=== PATIENT | female | born 1930 | race Caucasian/White ===

== ENCOUNTER 2017-05-11 10:36 | Inpatient (IN) | payer MEDICARE ==
[~2017-05-11] VITALS: Ht 160 cm; Wt 64.0 kg
[~2017-05-11 10:36] MED LIST: ENAL-3 OR; LANS15CA21 OR; METO25TA3 OR; SUM25T OR
[2017-05-11] MEDS ORDERED: SODIUM CHLORIDE 0.9% 1,000 ML IVB ONE (11:17)
[2017-05-11 12:51] LABS: Basophils # (auto) 0 uL; Basophils % (auto) 0.3 % (0.0-2.0); Eosinophils # (auto) 0.2 uL; Hematocrit 33.9 % (36.0-46.0); Hemoglobin 11.3 g/dL (12.2-16.2); Lymphocytes # (auto) 2.3 uL; Lymphocytes % (auto) 28.7 % (10.0-50.0); Mean Corpuscular Hemoglobin 28.2 pg (28.0-32.0); Mean Corpuscular Hgb Conc. 33.4 g/dL (32.0-36.0); Mean Corpuscular Volume 84.6 fL (80.0-100.0); Mean Platelet Volume 8.1 fL (6.9-10.8); Monocytes # (auto) 0.6 uL; Monocytes % (auto) 7.6 % (0.0-12.0); Neutrophils # (auto) 4.9 uL; Neutrophils % (auto) 60.4 % (37.0-80.0); Nucleated Red Blood Cells % 0.1 %; Platelet Count (auto) 281 10^3/uL (140-450); Red Cell Distribution Width 14.3 % (11.8-14.3); White Blood Cell 8.2 10^3/uL (4.4-10.8)
[2017-05-11 13:01] LABS: Urine Bilirubin Negative (Negative); Urine Blood 1+ /uL (Negative); Urine Glucose Normal (Normal); Urine Ketone Negative (Negative); Urine Nitrite Negative (Negative); Urine RBC 23 /hpf (0 - 4); Urine Squamous Epithelial Cell FEW /hpf (<5); Urine Urobilinogen Normal (Negative)
[2017-05-11 13:02] LABS: Urine Color Straw (Yellow)
[2017-05-11 13:04] LABS: INR 0.99 (0.9-1.15); Partial Thromboplastin Time 26.3 sec (22.64-33.71); Prothrombin Time 10.8 sec (9.37-12.3)
[2017-05-11] MEDS ORDERED: risperiDONE 1 MG TAB PO ONE (13:30)
[2017-05-11 13:31] LABS: Alkaline Phosphatase 53 U/L (45-117); Anion Gap 8 (5-15); Aspartate Aminotransferase 21 U/L (15-37); BUN/Creatinine Ratio 21.7; Bilirubin, Total 0.3 mg/dL (0.2-1.0); Blood Urea Nitrogen 26 mg/dL (7-18); Calcium 8.2 mg/dL (8.5-10.1); Carbon Dioxide 25 mmol/L (21-32); Chloride 107 mmol/L (98-107); GFR African American 55 mL/min; GFR Non-African American 45 mL/min; Glucose 95 mg/dL (74-106); Magnesium 2.1 mg/dL (1.6-2.6); Potassium 3.8 mmol/L (3.5-5.1); Sodium 140 mmol/L (136-145); Total Protein 7.1 g/dL (6.4-8.2)
[2017-05-11] MEDS ORDERED: DIAZEPAM 5 MG/ML 2ML SYRG IV ONE (14:00)
[2017-05-11] MEDS ORDERED: diphenhdrAMINE HCL 50 MG/1 ML VL IV ONE ×2 (14:15→23:15)
[2017-05-11] MEDS ORDERED: HALOPERIDOL LACTATE 5 MG/ML INJ VIAL IM ONE ×2 (14:15→23:15)
[2017-05-11] MEDS ORDERED: cefTRIAXone 1GM/10ml IVPUSH 10 ML IV ONE (14:30)
[2017-05-11] MEDS ORDERED: ACETAMINOPHEN 500 MG TAB PO PRN (14:45)
[2017-05-11] MEDS ORDERED: LACTULOSE 20Gm/30ML SOLN PO PRN (14:45)
[2017-05-11] MEDS ORDERED: MORPHINE SULF INJ 2 MG/ML SYRINGE 1ML IV PRN ×2 (14:45)
[2017-05-11] MEDS ORDERED: NITROGLYCERIN 0.4 MG SL TAB SL PRN (14:45)
[2017-05-11] MEDS ORDERED: QUEtiapine FUMARATE 25 MG TAB PO ONE (15:15)
[2017-05-11 15:26] LABS: Temperature: 23.1 C (20.0-25.0)
[2017-05-11] MEDS: SODIUM CHLORIDE 0.9% 1,000 ML IV SCH (15:28)
[2017-05-11] MEDS ORDERED: ASPirin 81 mg TAB PO ONE (15:30)
[2017-05-11] MEDS: PROMETHAZINE HCL 25 MG/ML 1ML IV PRN (16:17)
[2017-05-11] MEDS ORDERED: ENOXAPARIN SOD 30 MG/0.3 ML SYRINGE SC ONE (17:15)
[2017-05-11] MEDS ORDERED: PANTOPRAZOLE 40 MG TAB PO ONE (17:15)
[2017-05-11] MEDS: HYDROcodone-ACET 5/325MG TAB PO PRN (20:05)
[2017-05-11] MEDS: HALOPERIDOL LACTATE 5 MG/ML INJ VIAL IV PRN (21:02)
[2017-05-11] MEDS ORDERED: POTASSIUM CHL 20 Meq TABLET PO ONE ×2 (21:45→22:00)
[2017-05-11] MEDS: QUEtiapine FUMARATE 25 MG TAB PO SCH (22:27)
[2017-05-11] MEDS: METOPROLOL SUCCINATE XL 50 MG TAB PO SCH (22:27)
[2017-05-11] MEDS: ENALAPRIL MALEATE 10 MG TAB PO SCH (22:27)
[2017-05-12] VITALS (8 sets, daily range): BP systolic 134–168; BP diastolic 68–89
[2017-05-12] MEDS: SODIUM CHLORIDE 0.9% 1,000 ML IV SCH ×2 (02:40→15:24)
[2017-05-12] MEDS: HYDROcodone-ACET 5/325MG TAB PO PRN (04:54)
[2017-05-12] MEDS: HALOPERIDOL LACTATE 5 MG/ML INJ VIAL IV PRN ×2 (05:47→09:34)
[2017-05-12] MEDS: PROMETHAZINE HCL 25 MG/ML 1ML IV PRN (09:34)
[2017-05-12] MEDS: ASPirin 81 mg TAB PO SCH (11:00)
[2017-05-12] MEDS: cefTRIAXone 1GM/10ml IVPUSH 10 ML IV SCH (11:00)
[2017-05-12] MEDS: PANTOPRAZOLE 40 MG TAB PO SCH (11:01)
[2017-05-12] MEDS: METOPROLOL SUCCINATE XL 50 MG TAB PO SCH ×2 (11:01→22:57)
[2017-05-12] MEDS: risperiDONE 1 MG TAB PO SCH (11:01)
[2017-05-12] MEDS: ENOXAPARIN SOD 30 MG/0.3 ML SYRINGE SC SCH (11:02)
[2017-05-12] MEDS: ENALAPRIL MALEATE 10 MG TAB PO SCH ×2 (11:02→22:57)
[2017-05-12] MEDS: QUEtiapine FUMARATE 25 MG TAB PO SCH ×2 (11:03→22:56)
[2017-05-12] MEDS: MORPHINE SULF INJ 2 MG/ML SYRINGE 1ML IV PRN (19:49)
[2017-05-13 05:14] VITALS: BP 154/79
[2017-05-13] MEDS: SODIUM CHLORIDE 0.9% 1,000 ML IV SCH (05:35)
[2017-05-13] MEDS: HALOPERIDOL LACTATE 5 MG/ML INJ VIAL IV PRN (05:35)
[2017-05-13 05:46] LABS: Basophils # (auto) 0.1 uL; Basophils % (auto) 0.8 % (0.0-2.0); Eosinophils # (auto) 0.1 uL; Eosinophils % (auto) 1.6 % (0.0-7.0); Hematocrit 34.5 % (36.0-46.0); Hemoglobin 11.8 g/dL (12.2-16.2); Lymphocytes # (auto) 1.3 uL; Lymphocytes % (auto) 14.7 % (10.0-50.0); Mean Corpuscular Hemoglobin 28.6 pg (28.0-32.0); Mean Corpuscular Hgb Conc. 34.2 g/dL (32.0-36.0); Mean Corpuscular Volume 83.7 fL (80.0-100.0); Mean Platelet Volume 8.1 fL (6.9-10.8); Monocytes # (auto) 0.6 uL; Monocytes % (auto) 6.9 % (0.0-12.0); Neutrophils # (auto) 6.7 uL; Platelet Count (auto) 281 10^3/uL (140-450); Red Cell Distribution Width 14.2 % (11.8-14.3); White Blood Cell 8.8 10^3/uL (4.4-10.8)
[2017-05-13 06:08] LABS: Potassium 3.3 mmol/L (3.5-5.1)
[2017-05-13 08:00] VITALS: BP 147/83
[2017-05-13 09:00] VITALS: BP 147/83
[2017-05-13] MEDS ORDERED: POTASSIUM CHL 20 Meq TABLET PO ONE (09:45)
[2017-05-13] MEDS: cefTRIAXone 1GM/10ml IVPUSH 10 ML IV SCH (11:14)
[2017-05-13] MEDS: ASPirin 81 mg TAB PO SCH (11:14)
[2017-05-13] MEDS: PANTOPRAZOLE 40 MG TAB PO SCH (11:14)
[2017-05-13] MEDS: risperiDONE 1 MG TAB PO SCH (11:14)
[2017-05-13] MEDS: QUEtiapine FUMARATE 25 MG TAB PO SCH ×2 (11:15→21:22)
[2017-05-13] MEDS: MORPHINE SULF INJ 2 MG/ML SYRINGE 1ML IV PRN ×2 (11:15→21:10)
[2017-05-13] MEDS: ENOXAPARIN SOD 30 MG/0.3 ML SYRINGE SC SCH (11:15)
[2017-05-13] MEDS: PROMETHAZINE HCL 25 MG/ML 1ML IV PRN (11:16)
[2017-05-13] MEDS: ENALAPRIL MALEATE 10 MG TAB PO SCH ×2 (11:20→21:22)
[2017-05-13] MEDS: METOPROLOL SUCCINATE XL 50 MG TAB PO SCH ×2 (11:20→21:21)
[2017-05-13 13:00] VITALS: BP 161/72
[2017-05-13 17:00] VITALS: BP 132/71
[2017-05-13 22:00] VITALS: BP 139/72
[2017-05-14 05:00] VITALS: BP 140/77
[2017-05-14] MEDS: MORPHINE SULF INJ 2 MG/ML SYRINGE 1ML IV PRN ×4 (05:48→20:20)
[2017-05-14 08:00] VITALS: BP 151/74
[2017-05-14] MEDS: cefTRIAXone 1GM/10ml IVPUSH 10 ML IV SCH (09:42)
[2017-05-14] MEDS: ASPirin 81 mg TAB PO SCH (09:42)
[2017-05-14] MEDS: ENOXAPARIN SOD 30 MG/0.3 ML SYRINGE SC SCH (09:42)
[2017-05-14] MEDS: risperiDONE 1 MG TAB PO SCH (09:42)
[2017-05-14] MEDS: QUEtiapine FUMARATE 25 MG TAB PO SCH ×2 (09:43→21:06)
[2017-05-14] MEDS: PANTOPRAZOLE 40 MG TAB PO SCH (09:43)
[2017-05-14] MEDS: ENALAPRIL MALEATE 10 MG TAB PO SCH ×2 (09:43→21:06)
[2017-05-14] MEDS: METOPROLOL SUCCINATE XL 50 MG TAB PO SCH ×2 (09:44→21:07)
[2017-05-14] MEDS: BOOST PLUS 8 ounce PO SCH ×3 (12:00→19:51)
[2017-05-14 13:00] VITALS: BP 147/72
[2017-05-14 17:00] VITALS: BP 138/74
[2017-05-14 20:00] VITALS: BP 120/68
[2017-05-14 21:25] VITALS: BP 120/68
[2017-05-15] MEDS: MORPHINE SULF INJ 2 MG/ML SYRINGE 1ML IV PRN ×2 (00:18→06:28)
[2017-05-15 05:00] VITALS: BP 125/60
[2017-05-15 06:10] LABS: Basophils # (auto) 0 uL; Basophils % (auto) 0.3 % (0.0-2.0); Eosinophils # (auto) 0.1 uL; Eosinophils % (auto) 0.4 % (0.0-7.0); Hematocrit 33.9 % (36.0-46.0); Hemoglobin 11.2 g/dL (12.2-16.2); Lymphocytes # (auto) 0.8 uL; Lymphocytes % (auto) 5.3 % (10.0-50.0); Mean Corpuscular Hemoglobin 28.1 pg (28.0-32.0); Mean Corpuscular Hgb Conc. 33.1 g/dL (32.0-36.0); Mean Platelet Volume 8.5 fL (6.9-10.8); Monocytes # (auto) 0.7 uL; Monocytes % (auto) 4.3 % (0.0-12.0); Neutrophils # (auto) 14.2 uL; Neutrophils % (auto) 89.7 % (37.0-80.0); Nucleated Red Blood Cells % 0.1 %; Platelet Count (auto) 280 10^3/uL (140-450); Red Cell Distribution Width 14.6 % (11.8-14.3); White Blood Cell 15.8 10^3/uL (4.4-10.8)
[2017-05-15 06:29] LABS: Potassium 3.7 mmol/L (3.5-5.1)
[2017-05-15 06:35] LABS: Albumin 2.9 g/dL (3.4-5.0); BUN/Creatinine Ratio 22.2; Calcium 8.9 mg/dL (8.5-10.1)
[2017-05-15 06:48] LABS: Bilirubin, Total 0.4 mg/dL (0.2-1.0); Total Protein 6.9 g/dL (6.4-8.2)
[2017-05-15 08:00] VITALS: BP 151/83
[2017-05-15] MEDS: BOOST PLUS 8 ounce PO SCH ×6 (08:00→19:56)
[2017-05-15 08:30] VITALS: BP 151/83
[2017-05-15] MEDS: cefTRIAXone 1GM/10ml IVPUSH 10 ML IV SCH (09:23)
[2017-05-15] MEDS: QUEtiapine FUMARATE 25 MG TAB PO SCH ×2 (09:47→22:12)
[2017-05-15] MEDS: risperiDONE 1 MG TAB PO SCH (09:47)
[2017-05-15] MEDS: ASPirin 81 mg TAB PO SCH (09:47)
[2017-05-15] MEDS: ENALAPRIL MALEATE 10 MG TAB PO SCH ×2 (09:47→22:11)
[2017-05-15] MEDS: PANTOPRAZOLE 40 MG TAB PO SCH (09:47)
[2017-05-15] MEDS: ENOXAPARIN SOD 30 MG/0.3 ML SYRINGE SC SCH (09:48)
[2017-05-15] MEDS: METOPROLOL SUCCINATE XL 50 MG TAB PO SCH ×2 (09:48→22:11)
[2017-05-15 13:00] VITALS: BP 134/63
[2017-05-15 17:00] VITALS: BP 131/69
[2017-05-15 22:00] VITALS: BP 130/72
[2017-05-16 05:00] VITALS: BP 116/61
[2017-05-16 05:45] LABS: Basophils # (auto) 0.1 uL; Basophils % (auto) 0.5 % (0.0-2.0); Eosinophils # (auto) 0.1 uL; Eosinophils % (auto) 0.7 % (0.0-7.0); Hematocrit 32.5 % (36.0-46.0); Hemoglobin 10.9 g/dL (12.2-16.2); Lymphocytes % (auto) 9.5 % (10.0-50.0); Mean Corpuscular Hemoglobin 28.5 pg (28.0-32.0); Mean Corpuscular Hgb Conc. 33.5 g/dL (32.0-36.0); Mean Corpuscular Volume 85.1 fL (80.0-100.0); Mean Platelet Volume 8.8 fL (6.9-10.8); Monocytes # (auto) 0.7 uL; Monocytes % (auto) 6.6 % (0.0-12.0); Neutrophils # (auto) 8.9 uL; Neutrophils % (auto) 82.7 % (37.0-80.0); Nucleated Red Blood Cells % 0.1 %; Platelet Count (auto) 240 10^3/uL (140-450); Red Cell Distribution Width 14.7 % (11.8-14.3); White Blood Cell 10.7 10^3/uL (4.4-10.8)
[2017-05-16 06:02] LABS: Potassium 3.7 mmol/L (3.5-5.1)
[2017-05-16 06:14] LABS: BUN/Creatinine Ratio 29.2; Calcium 8.6 mg/dL (8.5-10.1)
[2017-05-16] MEDS: BOOST PLUS 8 ounce PO SCH ×4 (08:00→12:10)
[2017-05-16] MEDS: risperiDONE 1 MG TAB PO SCH (08:32)
[2017-05-16] MEDS: QUEtiapine FUMARATE 25 MG TAB PO SCH (08:32)
[2017-05-16] MEDS: ASPirin 81 mg TAB PO SCH (08:32)
[2017-05-16] MEDS: PANTOPRAZOLE 40 MG TAB PO SCH (08:32)
[2017-05-16] MEDS: METOPROLOL SUCCINATE XL 50 MG TAB PO SCH (08:33)
[2017-05-16] MEDS: ENALAPRIL MALEATE 10 MG TAB PO SCH (08:33)
[2017-05-16] MEDS: cefTRIAXone 1GM/10ml IVPUSH 10 ML IV SCH (08:34)
[2017-05-16] MEDS: ENOXAPARIN SOD 30 MG/0.3 ML SYRINGE SC SCH (08:53)
[2017-05-16] MEDS ORDERED: NITR-39 PO (11:18)
[2017-05-16] MEDS ORDERED: QUET25TA37 PO (11:18)
[2017-05-16] MEDS: MORPHINE SULF INJ 2 MG/ML SYRINGE 1ML IV PRN (12:09)
[2017-05-16 13:30] VITALS: BP 138/72
[2017-05-16 14:06] VITALS: BP 160/74
== END 2017-05-16 18:25 | disposition hospice, home (50) | DRG 682 ==
LOC: ER 10:36 → EDBD 10:36 → TELE 10:37 → TELE-WESTW 05-12 01:00
PROVIDERS: ADMIT Internal Medicine; ATTEND Internal Medicine
DX: N17.0 Acute kidney failure with tubular necrosis (principal); G93.41 Metabolic encephalopathy; I62.03 Nontraumatic chronic subdural hemorrhage; E44.0 Moderate protein-calorie malnutrition; N39.0 Urinary tract infection, site not specified; G30.9 Alzheimer's disease, unspecified; F02.80 Dementia in other diseases classified elsewhere, unspecified severity, without behavioral disturbance, psychotic disturbance, mood disturbance, and anxiety; B96.20 Unspecified Escherichia coli [E. coli] as the cause of diseases classified elsewhere; F17.200 Nicotine dependence, unspecified, uncomplicated; F41.9 Anxiety disorder, unspecified; G43.909 Migraine, unspecified, not intractable, without status migrainosus; Z51.5 Encounter for palliative care; G89.29 Other chronic pain; N18.9 Chronic kidney disease, unspecified; M54.9 Dorsalgia, unspecified; I12.9 Hypertensive chronic kidney disease with stage 1 through stage 4 chronic kidney disease, or unspecified chronic kidney disease; K21.9 Gastro-esophageal reflux disease without esophagitis; M81.0 Age-related osteoporosis without current pathological fracture; D64.9 Anemia, unspecified; Z82.49 Family history of ischemic heart disease and other diseases of the circulatory system; Z85.528 Personal history of other malignant neoplasm of kidney; Z87.440 Personal history of urinary (tract) infections; Z90.49 Acquired absence of other specified parts of digestive tract; Z90.710 Acquired absence of both cervix and uterus; Z86.73 Personal history of transient ischemic attack (TIA), and cerebral infarction without residual deficits; Z68.25 Body mass index [BMI] 25.0-25.9, adult; Z88.2 Allergy status to sulfonamides; Z88.8 Allergy status to other drugs, medicaments and biological substances
CPT/HCPCS: 36415; 51702; 70450; 71010; 73200; 80048; 80053; 81001; 82550; 82607; 82746; 82962; 83605; 83735; 84132; 84443; 84484; 85025; 85610; 85652; 85730; 87040; 87081; 87086; 87088; 87186; 93005; 94761; 95819; 96372; 96374; 96375